=== PATIENT | female | born 2005 | race Caucasian/White ===

== ENCOUNTER 2025-08-06 07:44 | Outpatient (OUT) | payer BC, SELFPAY ==
--- OUTSIDE RECORDS SUMMARY | 2025-07-27 14:30 | XMS_ITS | Encounter Summary ---
Author Organization [facility] Address [address] [place] [address] Care Team Providers Care Pressing Machine Tender Name Role Phone Unavailable Primary Care Provider Unavailabl e Encounter Details DateTypeDepartmentCare Team (Latest Contact Info)Fbbwecnukoz39/11/2025 2:30 PM ESTOffice Visit [facility] Medicine 112 [facility] [address] [place] [address] Byron Solano MD 112 [facility] 100 [place] [address] Tachycardia (Primary Dx); Family history of high cholesterol; Screening for diabetes mellitus; Screening cholesterol level; Multinodular goiter Social History Tobacco UseTypesPacks/DayYears UsedDateSmoking Tobacco: NeverSmokeless Tobacco: Never Tobacco Cessation:Counseling Given: Yes Alcohol UseStandard Drinks/WeekCommentsNever0 (1 standard drink = 0.6 oz pure alcohol)PHQ-2AnswerDate RecordedPatient Health Questionnaire-2 Kfvhf24109/26/2024 CommentsNoSex and Gender InformationValueDate RecordedSex Assigned at BirthNot on fileLegal WeyTndost81/15/2023 8:08 PM EDTGender IdentityNot on file Sexual OrientationNot on filedocumented as of this encounter Last Filed Vital Signs Vital SignReadingTime TakenCommentsBlood Pressure--Crizv307507/27/2025 2:28 PM EST Temperature--Respiratory Rate--Oxygen Hmcimkhqam40%07/27/2025 2:28 PM ESTInhaled Oxygen Concentration--Gmhlyj90.2 kg (126 lb)07/27/2025 2:28 PM LHADxugog340.5 cm (5' 2 )07/27/2025 2:28 PM ESTBody Mass Index23.0507/27/2025 2:28 PM EST documented in this encounter Functional Status * Over the past 2 weeks, how often have you been bothered by any of the following problems?QuestionAnswerDate of AssessmentAuthorLittle interest or pleasure in doing thingsNot at all07/27/2025 2:30 PM Oj, December, [place] Feeling down, depressed, or hopelessNot at all07/27/2025 2:30 PM Oj, December, [facility] FARMatient Health Questionnaire-2 Yjcyp83109/26/2024 2:30 PM Oj December, [place] documented as of this encounter Progress Notes * Byron Solano MD - 07/27/2025 2:30 PM EST Images from the original note were not included. Patient ID: Silvia Dalton is a 19 y.o. female who presents for: Sleep Disorder: Onset of symptoms has been several years. How many hours of sleep is patient getting on average night: 8-9 How long does it take patient to get to sleep each night: 5-10 min Does he/she have trouble falling asleep: no Does he/she have trouble maintaining sleep: no Does patient have good sleep hygiene: yes Pt states she has been getting a high HR in the 120s at home which she brought readings with her. She denies anxiousness. Review of Systems Constitutional: Negative for appetite change and fatigue. Psychiatric/Behavioral: Negative for agitation, behavioral problems, sleep disturbance and suicidalideas. The patient is not nervous/anxious. Objective The patient is pleasant and in no acute distress. The neck is supple and trachea is midline. No masses are appreciated. The heart is regular rate and rhythm without S3, S4. No murmur. Heart rate measured by pulse oximetry is 108. The patient has normal respiratory pattern. The breath sounds are symmetrical without evidence of rhonchi or rales. No wheezing. The skin is warm and dry. The lower extremities have no edema. The patient has good eye contact and speech is clear. Appropriate affect. 04/12/2025 9:33 AM 01/12/2025 3:50 PM 09/30/2017 12:00 PM 08/01/2017 12:00 PM Vitals BMI 23.23 kg/m2 23.96 kg/m2 16.45 kg/m2 16.66 kg/m2 BSA (m2) 1.59 m2 1.61 m2 1.18 m2 1.18 m2 Systolic 100 100 Diastolic 60 64 Height (in) 5' 2 5' 2 4' 9 4' 9 Weight (lb) 127 131 76 77 Visit Report Report Report No Known Allergies Current Outpatient Medications on File Prior to Visit Medication Sig Dispense Refill medroxyPROGESTERone (Depo-Provera) 150 MG/ML injection Inject 150 mg into the shoulder, thigh, or buttocks every 3 (three) months QUEtiapine (SEROquel) 25 MG tablet Take 1 tablet (25 mg) by mouth at bedtime 90 tablet 1 No current facility-administered medications on file prior to visit. 1. Tachycardia (Primary) Acute problem. At this point we have no specific reason for the tachycardia. She has previously used an excessive amount caffeine but currently is not using more than 1 dose in the morning. No other stimulants. No decongestants. We will start with pursuing basic labs. We do not find something that is helping us with the diagnosis, the next step will be to proceed with Holter monitor. - CBC and differential; Future - Comprehensive metabolic panel; Future - TSH; Future - CBC and differential - Comprehensive metabolic panel - TSH 2. Family history of high cholesterol - Lipid panel; Future - Lipid panel 3. Screening for diabetes mellitus - Comprehensive metabolic panel; Future - Comprehensive metabolic panel 4. Screening cholesterol level - Lipid panel; Future - Lipid panel 5. Multinodular goiter Upon review of the medical record we find that she has a history of this. We will start with a TSH. - TSH; Future - TSH Please Note: Portions of this chart may have been created using voice recognition software. Occasionally a wrong-word or sound-like substitutions may have occurred due to inherent limitations of the voice recognition software. Please read the chart carefully and recognize, using context, where the substitutions may have occurred. documented in this encounter Plan of Treatment NameTypePriorityAssociated DiagnosesOrder ScheduleCBC and differentialLabRoutine Tachycardia Expected: 07/27/2025 (Approximate), Expires: 07/27/2026omprehensive metabolic panelLabRoutine Tachycardia Screening for diabetes mellitus Expected: 07/27/2025 (Approximate), Expires: 07/27/2026Lipid panelLabRoutine Family history of high cholesterol Screening cholesterol level Expected: 07/27/2025 (Approximate), Expires: 07/27/2026TSHLabRoutine Tachycardia Multinodular goiter Expected: 07/27/2025 (Approximate), Expires: 07/27/2026documented as of this encounter Visit Diagnoses Diagnosis Tachycardia- Primary Unspecified tachycardia Family history of high cholesterol Family history of other endocrine and metabolic diseases Screening for diabetes mellitus Screening cholesterol level Screening for lipoid disorders Multinodular goiter Nontoxic multinodular goiter documented in this encounter
--- OUTSIDE RECORDS SUMMARY | 2025-07-28 08:51 | XMS_ITS | Encounter Summary ---
Author Organization [facility] Address [address] [facility], [address] [place] [address] Care Team Providers Care Electronic Parts Salesperson Name Role Phone Byron Solano MD Primary Care Provider [phone] Encounter Details DateTypeDepartmentCare Team (Latest Contact Info)Rnmswrjgnct03/12/2025 8:51 AM EST - 07/28/2025 11:59 PM ESTHospital Encounter [place] [id number] Discharge Disposition: Home or Self Care Social History Tobacco UseTypesPacks/DayYears UsedDateSmoking Tobacco: NeverSmokeless Tobacco: NeverAlcohol UseStandard Drinks/WeekCommentsNot Currently0 (1 standard drink = 0.6 oz pure alcohol)[facility] UtilitiesAnswerDate RecordedIn the past 12 months has the Mobile [employer], gas, oil, or water [employer] threatened to shut off services in your home?No01/28/2025UDIT-CAnswerDate RecordedQ1: How often do you have a drink containing alcohol?Never04/01/2025Q2: How many drinks containing alcohol do you have on a typical day when you are drinking?Patient does not drink04/01/2025Q3: How often do you have six or more drinks on one occasion?Never04/01/2025PHQ-2 AnswerDate RecordedPHQ-9 Total Ccljv294Hunger Vital SignAnswerDate RecordedWithin the past 12 months, you worried that your food would run out before you got the money to buymore.Never true01/28/2025Within the past 12 months, the food you bought just didn't last and you didn't have money to get more.Never true01/28/2025PRAPARE - TransportationAnswerDate RecordedIn the past 12 months, has lack of transportation kept you from medical appointments or from getting medications?No01/28/2025In the past 12 months, has lack of transportation kept you from meetings, work, or from getting things needed for daily living?No01/28/2025Housing Stability Vital SignAnswerDate RecordedIn the last 12 months, was there a time when you were not able to pay the mortgage or rent on time?No01/28/2025In the past 12 months, how many times have you moved where you were living?t any time in the past 12 months, were you homeless or living in a mcc (including now)?No01/28/2025Food Insecurity AnswerDate RecordedWithin the past 12 months, you worried that your food would run out before you got the money to buymore.Within the past 12 months, the food you bought just didn't last and you didn't have money to get more.Interpersonal Safety Domain Source: IP Abuse ScreeningAnswerDate RecordedPhysical yvwauEoqwld50/14/2024Verbal rvfoyJlhsky38/14/2024Emotional iyoxjSbiqmo01/14/2024Financial kyxijKmvzoc82/14/2024Sexual qlghhHlhbqn73/14/2024 CommentsNoSex and Gender InformationValueDate RecordedSex Assigned at BirthNot on fileLegal OceLqubtp22/25/2013 10:23 PM EDTGender IdentityNot on file Sexual OrientationNot on filedocumented as of this encounter Medications at Time of Discharge MedicationSigDispense QuantityRefillsLast FilledStart DateEnd Date medroxyPROGESTERone (DEPO-PROVERA) 150 MG/ML injection Inject 1 mL into the muscle SEROQUEL 25 MG tablet fexofenadine (ZINA) 180 MG tablet TAKE 1 TABLET BY MOUTH EVERY MORNING X 1 WEEK THEN IQSMFU284documented as of this encounter Plan of Treatment Not on file documented as of this encounter Procedures Procedure NamePriorityDate/TimeAssociated DiagnosisCommentsCBC WITH AUTO ASIBBCDUONMXFyvdnry79/12/2025 8:53 AM EST RAGHruurvs29/12/2025 8:53 AM EST LIPID DHKXNYdraizg37/12/2025 8:53 AM EST COMPREHENSIVE METABOLIC MIMDMXlpfckg39/12/2025 8:53 AM EST documented in this encounter Results * TSH (07/28/2025 8:53 AM EST)ComponentValueRef RangeTest MethodAnalysis Time Performed AtPathologist SignatureTSH1.050.27 - 4.20 uIU/mL07/28/2025 8:53 AM [facility] LABSpecimen (Source)Anatomical Location / LateralityCollection Method / VolumeCollection TimeReceived Time07/28/2025 8:53 AM EST07/28/2025 8:54 AM EST Narrative Authorizing ProviderResult TypeResult Benjamín Solano MDCHEMISTRY ORDERABLESFinal ResultPerforming OrganizationAddressCity/State/ZIP CodePhone Number [facility] [address] [place] [address], [facility] [phone] * Lipid Panel (07/28/2025 8:53 AM EST)ComponentValueRef RangeTest MethodAnalysis TimePerformed AtPathologist SignatureCholesterol, Tcxyo2686 - 199 mg/dL 07/28/2025 8:53 AM ESTMERCY LABORATORIESComment: Cholesterol Guidelines: <200 Desirable 200-240 ??Borderline >240 Undesirable HDL50>40 mg/dL07/28/2025 8:53 AM ESTMERCY LABORATORIESComment: HDL Guidelines: <40 Undesirable 40-59 ?Borderline >59 Desirable LDL Oznwkmhrhio213 - 100 mg/dL07/28/2025 8:53 AM ESTMERCY LABORATORIESComment: LDL Guidelines: <100 Desirable 100-129 ?? Near to/above Desirable 130-159 ?? Borderline >159 Undesirable Direct (measured) LDL and calculated LDL are not interchangeable tests. Chol/HDL Ratio3.1<5.011/08/2025 8:53 AM ESTSUMMIT HEALTHCARE REGIONAL MEDICAL CENTERGnarus Systems YUZFIIYSHQWKOfafywvshsajx14<150 mg/dL07/28/2025 8:53 AM ESTSUMMIT HEALTHCARE REGIONAL MEDICAL CENTERGnarus Systems LABORATORIESComment: Triglyceride Guidelines: <150 Desirable 150-199 ??Borderline 200-499 ??High >499 Very high Based on AHA Guidelines for fasting triglyceride, June 2012. ZMLY750 - 30 mg/dL07/28/2025 8:53 AM ESTDhf Taxi LABORATORIESSpecimen (Source) Anatomical Location / LateralityCollection Method / VolumeCollection Time Received Time07/28/2025 8:53 AM EST07/28/2025 8:54 AM EST Narrative Authorizing ProviderResult TypeResult StatusEdapril Solano MDCHEMISTRY ORDERABLESFinal ResultPerforming OrganizationAddressCity/State/ZIP CodePhone Number [facility] [address] [place], [place] [address] [phone] [place] [id number] [address] [phone] * Comprehensive Metabolic Panel (07/28/2025 8:53 AM EST)ComponentValueRef Range Test MethodAnalysis TimePerformed AtPathologist HobheqsrcXectyo088480 - 145 mmol/L109/27/2024 8:53 AM [facility] LABPotassium4.03.7 - 5.3 mmol/L109/27/2024 8:53 AM [facility] OAMWdtnvnwo58342 - 107 mmol/L109/27/2024 8:53 AM [facility] GVKNZ14436 - 31 mmol/L109/27/2024 8:53 AM [facility] LABAnion Gap99 - 16 mmol/L109/27/2024 8:53 AM [facility] YVJAcoavju3313 - 99 mg/dL07/28/2025 8:53 AM [facility] OMFAHR60 - 20 mg/dL 07/28/2025 8:53 AM [facility] LABCreatinine0.80.50 - 0.90 mg/dL07/28/2025 8:53 AM [facility] LABEstDave Filt Rate >90>60 mL/min/1.60j59007/28/2025 8:53 AM [facility] Comment: ? These results are not intended for use in patients <18 years of age. ? eGFR results are calculated without a race factor using the 2020 CKD-EPI equation. Careful clinical correlation is recommended, particularly when comparing to results calculated using previous equations. The CKD-EPI equation is less accurate in patients with extremes of muscle mass, extra-renal metabolism of creatine, excessive creatine ingestion, or following therapy that affects renal tubular secretion. BUN/Creatinine Fpipj807 - 8:53 AM [facility] LABCalcium9.28.6 - 10.4 mg/dL07/28/2025 8:53 AM [facility] LABTotal Protein6.86.6 - 8.7 g/dL07/28/2025 8:53 AM [facility] LABAlbumin4.53.5 - 5.2 g/dL07/28/2025 8:53 AM [facility] LABAlbumin/Globulin Ratio1.91.0 - 2.511 8:53 AM [facility] LABTotal Bilirubin0.60.00 - 1.20 mg/dL07/28/2025 8:53 AM [facility] LABAlkaline Aqnfenihdsb1879 - 104 U/L109/27/2024 8:53 AM [facility] TDBNOH4113 - 35 U/L109/27/2024 8:53 AM [facility] KSIQZB1370 - 35 U/L109/27/2024 8:53 AM [facility] LABSpecimen (Source)Anatomical Location / Laterality Collection Method / VolumeCollection TimeReceived Time07/28/2025 8:53 AM EST 07/28/2025 8:54 AM EST Narrative Authorizing ProviderResult TypeResult StatusByron Solano MDCHEMISTRY ORDERABLESFinal ResultPerforming OrganizationAddressCity/State/ZIP CodePhone Number [facility] [address] [phone] * (ABNORMAL) CBC with Auto Differential (07/28/2025 8:53 AM EST)ComponentValue Ref RangeTest MethodAnalysis TimePerformed AtPathologist SignatureWBC4.74.5 - 13.5 k/uL07/28/2025 8:53 AM [facility] LABRBC5.093.95 - 5.11 m/uL07/28/2025 8:53 AM [facility] WDBLotvzqzqtb47.2 11.9 - 15.1 g/dL07/28/2025 8:53 AM [facility] LAB Vwimtotdyt01.036.3 - 47.1 %07/28/2025 8:53 AM [facility] CRXDPH06.5(L)82.6 - 102.9 fL07/28/2025 8:53 AM [facility] SXYLHA78.925.2 - 33.5 pg07/28/2025 8:53 AM [facility] MCHC33.828.4 - 34.8 g/dL07/28/2025 8:53 AM [facility] RDW12.311.8 - 14.4 %07/28/2025 8:53 AM [facility] Tialhiayf124040 - 453 k/uL07/28/2025 8:53 AM [facility] DKSUVZ85.38.1 - 13.5 fL07/28/2025 8:53 AM [facility] NRBC Automated0.00.0 per 100 WBC07/28/2025 8:53 AM [facility] LABNeutrophils %4534 - 64 %07/28/2025 8:53 AM [facility] LABLymphocytes %46(H)25 - 45 %07/28/2025 8:53 AM [facility] LABMonocytes %62 - 8 %07/28/2025 8:53 AM [facility] LABEosinophils %21 - 4 %07/28/2025 8:53 AM [facility] LABBasophils %10 - 2 %07/28/2025 8:53 AM [facility] LABImmature Granulocytes %00 %07/28/2025 8:53 AM [facility] LABNeutrophils Absolute2.101.80 - 8.00 k/uL07/28/2025 8:53 AM [facility] LABLymphocytes Absolute2.111.20 - 5.20 k/uL07/28/2025 8:53 AM [facility] LABMonocytes Absolute 0.300.10 - 1.40 k/uL07/28/2025 8:53 AM [facility] Eosinophils Absolute0.110.00 - 0.44 k/uL07/28/2025 8:53 AM [facility] LABBasophils Absolute0.030.00 - 0.20 k/uL07/28/2025 8:53 AM [facility] LABImmature Granulocytes Absolute<0.030.00 - 0.30 k/uL07/28/2025 8:53 AM [facility] LABSpecimen (Source)Anatomical Location / LateralityCollection Method / VolumeCollection TimeReceived Time07/28/2025 8:53 AM EST07/28/2025 8:54 AM EST Narrative Authorizing ProviderResult TypeResult StatusEdapril Solano MDHEMATOLOGY ORDERABLESFinal ResultPerforming OrganizationAddressCity/State/ZIP CodePhone Number [facility] [address] [place] [id number] [phone] documented in this encounter Visit Diagnoses Not on filedocumented in this encounter Care Teams Team MemberRelationshipSpecialtyStart DateEnd Date Byron Solano MD [address] [place] [address] PCP - Yhfdjcl84/12/25documented as of this encounter
--- OUTSIDE RECORDS SUMMARY | 2025-08-06 07:45 | XMS_ITS | Encounter Summary ---
Author Organization [facility] Address [address] [place] [address] Care Team Providers Care Candy Maker Helper Name Role Phone Unavailable Primary Care Provider Unavailabl e Encounter Details DateTypeDepartmentCare Team (Latest Contact Info)Toketdtfsja36/11/2025amb flowsheet [facility] [address] Medicine [address] [place] [address] Byron Solano MD [address] [place] [address] Social History Tobacco UseTypesPacks/DayYears UsedDateSmoking Tobacco: NeverSmokeless Tobacco: NeverAlcohol UseStandard Drinks/WeekCommentsNever0 (1 standard drink = 0.6 oz pure alcohol)PHQ-2AnswerDate RecordedPatient Health Questionnaire-2 Score0 07/27/2025CommentsNoSex and Gender InformationValueDate RecordedSex Assigned at BirthNot on fileLegal ShoPqetzu44/15/2023 8:08 PM EDTGender Identity Not on fileSexual OrientationNot on filedocumented as of this encounter Plan of Treatment Not on file documented as of this encounter Visit Diagnoses Not on filedocumented in this encounter
--- OUTSIDE RECORDS SUMMARY | 2025-08-06 07:45 | XMS_ITS | Clinical Summary ---
Author Organization [facility] Address [id number] [address] [place] [address] Care Team Providers Care Wwe Wrestler Name Role Phone Unavailable Primary Care Provider Unavailabl e Allergies No known active allergies Medications No known medications Family History Medical HistoryRelationNameCommentsAnesthesia problemsBrotherPONVAnesthesia problemsMotherprolonged emergenceRelationNameStatusCommentsBrotherMother Social History Tobacco UseTypesPacks/DayYears UsedDateSmoking Tobacco: NeverSmokeless Tobacco: Never Tobacco Cessation:Counseling Given: Not Answered Alcohol UseStandard Drinks/WeekCommentsDefer0 (1 standard drink = 0.6 oz pure alcohol)CommentsNoSex and Gender InformationValueDate RecordedSex Assigned at BirthNot on fileLegal GskXcybvp49/02/2024 9:50 AM ESTGender Identity Not on fileSexual OrientationNot on file Last Filed Vital Signs Vital SignReadingTime TakenCommentsBlood Pressure--Pulse--Temperature-- Respiratory Rate--Oxygen Saturation--Inhaled Oxygen Concentration--Hjjbmy86.4 kg (120 lb)08/19/2024 10:42 AM JVTHgjdil668 cm (5' 3 )08/19/2024 10:42 AM ESTBody Mass Index21.26110/20/2023 10:42 AM ESTBody Mass Index Mfubaprhse03.98%08/19/2024 10:42 AM ESTGrowth Chart: CDC (Girls, 2-20 Years) Plan of Treatment Not on file Medical Devices Not on file Insurance
--- OUTSIDE RECORDS SUMMARY | 2025-08-06 07:45 | XMS_ITS | Encounter Summary ---
Author Organization [facility] Address [address] [place] [address] Care Team Providers Care Automobile Parts Assembler Name Role Phone Unavailable Primary Care Provider Unavailabl e Encounter Details DateTypeDepartmentCare Team (Latest Contact Info)Emguevqdmle74/12/2025linisync Result Encounter [facility] External Department Unsolicited Byron Galdamez MD [address] [facility] [address] [place], [place] [id number] Social History Tobacco UseTypesPacks/DayYears UsedDateSmoking Tobacco: NeverSmokeless Tobacco: NeverAlcohol UseStandard Drinks/WeekCommentsNever0 (1 standard drink = 0.6 oz pure alcohol)PHQ-2AnswerDate RecordedPatient Health Questionnaire-2 Score0 07/27/2025CommentsNoSex and Gender InformationValueDate RecordedSex Assigned at BirthNot on fileLegal OivWwpbyf77/15/2023 8:08 PM EDTGender Identity Not on fileSexual OrientationNot on filedocumented as of this encounter Plan of Treatment Not on file documented as of this encounter Procedures Procedure NamePriorityDate/TimeAssociated DiagnosisCommentsMHPT LIPID PROFILE Kteikor0907/28/2025 8:53 AM EST MHPT COMP METABOLIC QHZBRhcogrw75/12/2025 8:53 AM EST MHPT CBC WITH WVUUSsrqfym90/12/2025 8:53 AM EST ALL THYROID STIM OZXQWQLUtmduag16/08/2025 8:53 AM EST documented in this encounter Results * MHPT LIPID PROFILE (07/28/2025 8:53 AM EST)ComponentValueRef RangeTest Method Analysis TimePerformed AtPathologist SignatureMHPT UGAYFVLEKDN8438 - 199 mg/dL MHPTComment: Cholesterol Guidelines: <200 Desirable 200-240 ??Borderline >240 Undesirable MHPT CHOLESTEROL,HDL50>40 mg/dLMHPTComment: HDL Guidelines: <40 Undesirable 40-59 ?Borderline >59 Desirable MHPT CHOLESTEROL,XLJ882 - 100 mg/dLMHPTComment: LDL Guidelines: <100 Desirable 100-129 ?? Near to/above Desirable 130-159 ?? Borderline >159 Undesirable Direct (measured) LDL and calculated LDL are not interchangeable tests. MHPT CHOL/HDL RATIO3.1<5.0MHPTMHPT KPPWANBZCZVVV99<150 mg/dLMHPTComment: Triglyceride Guidelines: <150 Desirable 150-199 ??Borderline 200-499 ??High >499 Very high Based on AHA Guidelines for fasting triglyceride, June 2012. MHPT CHOLESTEROL,NJKX760 - 30 mg/dLMHPTSpecimen (Source)Anatomical Location / LateralityCollection Method / VolumeCollection TimeReceived Time07/28/2025 8:53 AM EST07/28/2025 8:54 AM EST Narrative CLINISYNC - 07/28/2025 4:18 PM EST Original Ordering Provider: BYRON GALDAMEZ Authorizing ProviderResult TypeResult Benjamín Galdamez MDCLINISYNCFinal ResultPerforming OrganizationAddressCity/State/ZIP CodePhone Number [facility] * ALL THYROID STIM HORMONE (07/28/2025 8:53 AM EST)ComponentValueRef RangeTest MethodAnalysis TimePerformed AtPathologist SignatureMHPT THYROID STIM. HORM. 1.050.27 - 4.20 uIU/mLMHPTSpecimen (Source)Anatomical Location / Laterality Collection Method / VolumeCollection TimeReceived Time07/28/2025 8:53 AM EST 07/28/2025 8:54 AM EST Narrative CLINISYNC - 07/28/2025 10:10 AM EST Original Ordering Provider: BYRON GALDAMEZ Authorizing ProviderResult TypeResult Benjamín Galdamez MDCLINISYNCFinal ResultPerforming OrganizationAddressCity/State/ZIP CodePhone Number [facility]NC MHPT * MHPT COMP METABOLIC PROF (07/28/2025 8:53 AM EST)ComponentValueRef RangeTest MethodAnalysis TimePerformed AtPathologist SignatureMHPT NA (SODIUM)723573 - 145 mmol/LMHPTMHPT K (POTASSIUM)4.03.7 - 5.3 mmol/LMHPTMHPT GRCESIAC33836 - 107 mmol/LMHPTMHPT WA28023 - 31 mmol/LMHPTMHPT ANION GAP99 - 16 mmol/LMHPTMHPT OPRWADX2498 - 99 mg/dLMHPTMHPT BUN (UREA N)96 - 20 mg/dLMHPTMHPT CREATININE0.8 0.50 - 0.90 mg/dLMHPTMHPT EGFR>90>60 mL/min/1.71x6GTLZZzfmgru: ? These results are not intended for [...] following therapy that affects renal tubular secretion. MHPT BUN/CRE LSSBN560 - 20MHPTMHPT CALCIUM9.28.6 - 10.4 mg/dLMHPTMHPT PROTEIN, TOTAL6.86.6 - 8.7 g/dLMHPTMHPT ALBUMIN4.53.5 - 5.2 g/dLMHPTMHPT ALBUMIN/GLOB RATIO1.91.0 - 2.5MHPTMHPT BILIRUBIN, TOTAL0.60.00 - 1.20 mg/dLMHPTMHPT ALKALINE IKPV1493 - 104 U/LMHPTMHPT WLZ4860 - 35 U/LMHPTMHPT JGR0172 - 35 U/LMHPTSpecimen (Source)Anatomical Location / LateralityCollection Method / VolumeCollection TimeReceived Time07/28/2025 8:53 AM EST07/28/2025 8:54 AM EST Narrative CLINISYNC - 07/28/2025 10:10 AM EST Original Ordering Provider: EDWARD J MD HEMEYER Authorizing ProviderResult TypeResult StatusEdapril Galdamez MDCLINISYNCFinal ResultPerforming OrganizationAddressCity/State/ZIP CodePhone Number [facility] MHPT * (ABNORMAL) MHPT CBC WITH DIFF (07/28/2025 8:53 AM EST)ComponentValueRef Range Test MethodAnalysis TimePerformed AtPathologist SignatureMHPT WBC COUNT4.74.5 - 13.5 k/uLMHPTMHPT RBC COUNT5.093.95 - 5.11 m/uLMHPTMHPT KKWHLUMEYG24.211.9 - 15.1 g/dLMHPTMHPT LMKQCNVWVS14.036.3 - 47.1 %MHPTMHPT MCV82.5(L)82.6 - 102.9 fLMHPTMHPT MCH27.925.2 - 33.5 pgMHPTMHPT MCHC33.828.4 - 34.8 g/dLMHPTMHPT RDW 12.311.8 - 14.4 %MHPTMHPT PLATELET NLKWC258115 - 453 k/uLMHPTMHPT MPV10.38.1 - 13.5 fLMHPTMHPT NRBC AUTOMATED0.00.0 per 100 WBCMHPTMHPT NEUTROPHIL (SEG)4534 - 64 %MHPTMHPT VQZEVGGALF83(H)25 - 45 %MHPTMHPT PGZVULGJ99 - 8 %MHPTMHPT OYQWZWUXXD05 - 4 %MHPTMHPT EAKKYKBO69 - 2 %MHPTMHPT IMMATURE VGCMTZQAJAW89 % MHPTMHPT ABS.NEUTROPHIL (SEG)2.101.80 - 8.00 k/uLMHPTMHPT ABS. LYMPH2.111.20 - 5.20 k/uLMHPTMHPT ABS. MONOCYTE0.300.10 - 1.40 k/uLMHPTMHPT ABS. EOSINOPHIL 0.110.00 - 0.44 k/uLMHPTMHPT ABS. BASOPHIL0.030.00 - 0.20 k/uLMHPTMHPT ABS.IMM.GRANULOCYTE<0.030.00 - 0.30 k/uLMHPTSpecimen (Source)Anatomical Location / LateralityCollection Method / VolumeCollection TimeReceived Time 07/28/2025 8:53 AM EST07/28/2025 8:54 AM EST Narrative CLINISYNC - 07/28/2025 9:32 AM EST Original Ordering Provider: BYRON GALDAMEZ Authorizing ProviderResult TypeResult StatusEdapril Galdamez MDCLINISYNCFinal ResultPerforming OrganizationAddressCity/State/ZIP CodePhone Number [facility] MHPT documented in this encounter Visit Diagnoses Not on filedocumented in this encounter
--- OUTSIDE RECORDS SUMMARY | 2025-08-06 07:45 | XMS_ITS | Encounter Summary ---
Author Organization [facility] Address [address] [place] [address] Care Team Providers Care Pathology Teacher Name Role Phone Unavailable Primary Care Provider Unavailabl e Reason for Referral * Cardiac Stress Testing (Routine) - Sent for SchedulingSpecialtyDiagnoses / ProceduresReferred By ContactReferred To ContactRadiology Diagnoses Tachycardia Heart palpitations Procedures Holter monitor Byron Solano MD [address] [address] Phone: tel: fax: [address] [address] Phone: tel: fax: Referral IDStatusReasonStart DateExpiration DateVisits RequestedVisits [id number] for Djpmkhsnok13/12/20255/ Reason for Visit * ReasonOnset DateCommentsCare Qfgvktrgqmmf99/12/2025 Encounter Details DateTypeDepartmentCare Team (Latest Contact Info)Ztetfvomtvx47/12/2025Results Follow-Up [facility] [place] [address] [facility] [address] [address] Byron Solano MD [address] [address] (Fax) MHPT CBC WITH DIFF, MHPT COMP METABOLIC PROF, ALL THYROID STIM HORMONE Social History Tobacco UseTypesPacks/DayYears UsedDateSmoking Tobacco: NeverSmokeless Tobacco: NeverAlcohol UseStandard Drinks/WeekCommentsNever0 (1 standard drink = 0.6 oz pure alcohol)PHQ-2AnswerDate RecordedPatient Health Questionnaire-2 Score0 07/27/2025CommentsNoSex and Gender InformationValueDate RecordedSex Assigned at BirthNot on fileLegal NbhUaemig09/15/2023 8:08 PM EDTGender Identity Not on fileSexual OrientationNot on filedocumented as of this encounter Miscellaneous Notes * Telephone Encounter - Lata Dodge MA - 07/28/2025 1:35 PM EST Pt is in classes in afternoons. Portal message sent. Monitor sent to [facility] * Telephone Encounter - Lata Dodge MA - 07/28/2025 1:35 PM EST ----- Message from Byron Solano MD sent at 07/28/2025 1:05 PM EST ----- ----- Message ----- From: Interface, Lab Results In Sent: 07/28/2025 9:46 AM EST To: Byron Solano MD * Telephone Encounter - Byron Solano MD - 07/28/2025 1:04 PM EST Notify patient that labs are rewed. They are essentially normal. There is a suggestion of viral infection but not definitive in the blood count. She is not anemic her sugar is not elevated her liver and kidney appear to be normal. As we have discussed she should proceed with 3 day Holter monitor for tachycardia And palpitations. documented in this encounter Plan of Treatment NameTypePriorityAssociated DiagnosesOrder ScheduleHolter monitorImagingRoutine Tachycardia Heart palpitations Expected: 07/28/2025 (Approximate), Expires: 07/28/2026documented as of this encounter Visit Diagnoses Diagnosis Tachycardia Unspecified tachycardia Heart palpitations Palpitations documented in this encounter
--- OUTSIDE RECORDS SUMMARY | 2025-08-06 07:45 | XMS_ITS | Encounter Summary ---
Author Organization [facility] Address [address] [place] [address] Care Team Providers Care Barrel Washer Machine Name Role Phone Unavailable Primary Care Provider Unavailabl e Encounter Details DateTypeDepartmentCare Team (Latest Contact Info)Fulmobemedd31/11/2025Travel Social History Tobacco UseTypesPacks/DayYears UsedDateSmoking Tobacco: NeverSmokeless Tobacco: NeverAlcohol UseStandard Drinks/WeekCommentsNever0 (1 standard drink = 0.6 oz pure alcohol)PHQ-2AnswerDate RecordedPatient Health Questionnaire-2 Score0 07/27/2025CommentsNoSex and Gender InformationValueDate RecordedSex Assigned at BirthNot on fileLegal CreFthdco94/15/2023 8:08 PM EDTGender Identity Not on fileSexual OrientationNot on filedocumented as of this encounter Functional Status * Over the past 2 weeks, how often have you been bothered by any of the following problems?QuestionAnswerDate of AssessmentAuthorLittle interest or pleasure in doing thingsNot at all07/27/2025 2:30 PM Oj Lata, CRISTIANO Feeling down, depressed, or hopelessNot at all07/27/2025 2:30 PM Oj December, MARYANNatient Health Questionnaire-2 Sjawm64909/26/2024 2:30 PM Oj LataCRISTIANO documented as of this encounter Plan of Treatment Not on file documented as of this encounter Visit Diagnoses Not on filedocumented in this encounter
--- OUTSIDE RECORDS SUMMARY | 2025-08-06 07:45 | XMS_ITS | Clinical Summary ---
Author Organization [facility] Address [address], [address] [place] [address] Care Team Providers Care Disintegrator Feeder Name Role Phone Byron Solano MD Primary Care Provider [phone] Allergies No known active allergies Medications MedicationSigDispense QuantityRefillsLast FilledStart DateEnd DateStatus fexofenadine (ZINA) 180 MG tablet TAKE 1 TABLET BY MOUTH EVERY MORNING X 1 WEEK THEN KMCJBU2911/07/2023ctive SEROQUEL 25 MG tablet Active medroxyPROGESTERone (DEPO-PROVERA) 150 MG/ML injection Inject 1 mL into the muscleActive Active Problems No known active problems Encounters DateTypeDepartmentCare FshoAbutooemjgj53/12/2025 8:51 AM EST - 07/28/2025 11:59 PM ESTHospital Encounter [facility] [address] [place], [place] [id number] Discharge Disposition: Home or Self Carefrom Last 3 Months Immunizations ImmunizationAdministration DatesNext DueMeningococcal ACWY, MENQUADFI (MenACWY- TT), (age 2y+), IM, 0.5mL02/25/2023 Social History Tobacco UseTypesPacks/DayYears UsedDateSmoking Tobacco: NeverSmokeless Tobacco: Never Tobacco Cessation:Counseling Given: Yes Alcohol UseStandard Drinks/WeekCommentsNot Currently0 (1 standard drink = 0.6 oz pure alcohol)[facility] UtilitiesAnswerDate RecordedIn the past 12 months has the electric, gas, oil, or water company threatened to shut off services in your home?No01/28/2025UDIT-CAnswerDate RecordedQ1: How often do you have a drink containing alcohol?Never04/01/2025Q2: How many drinks containing alcohol do you have on a typical day when you are drinking?Patient does not drink04/01/2025Q3: How often do you have six or more drinks on one occasion?Never04/01/2025PHQ-2 AnswerDate RecordedPHQ-9 Total Etwnc896Hunger Vital SignAnswerDate RecordedWithin the past 12 months, [...] were you homeless or living in a longterm (including now)?No01/28/2025Food Insecurity AnswerDate RecordedWithin the past 12 months, you worried that your food would run out before you got the money to buymore.Within the past 12 months, the food you bought just didn't last and you didn't have money to get more.Interpersonal Safety Domain Source: IP Abuse ScreeningAnswerDate RecordedPhysical nymujLjvpag80/14/2024Verbal qpdrmKzmgus98/14/2024Emotional jonzyMbvmjb74/14/2024Financial zyckaGoowib74/14/2024Sexual ptgnrKgisrs13/14/2024 CommentsNoSex and Gender InformationValueDate RecordedSex Assigned at BirthNot on fileLegal LtlTltaeg27/25/2013 10:23 PM EDTGender IdentityNot on file Sexual OrientationNot on file Last Filed Vital Signs Vital SignReadingTime TakenCommentsBlood Rpurtriq938/6707 1:45 AM EDT Yvjbw184404/02/2025 1:45 AM AUAWiwywrivail77.6 ??C (97.9 ??F)04/02/2025 1:45 AM EDTRespiratory Zsze926104/02/2025 1:45 AM EDTOxygen Bervwhjiet99%04/02/2025 1:45 AM EDTInhaled Oxygen Concentration--Lkybkj13.8 kg (112 lb)04/22/2025 10:33 AM OVZZhufwp669.5 cm (5' 2 )04/22/2025 10:33 AM EDTBody Mass Index20.4908 10:33 AM EDT Plan of Treatment Health MaintenanceDue DateLast DoneCommentsVaricella vaccine (1 of 2 - 13+ 2- dose series)2018HIV yjlnra7110/26/2020HPV vaccine (1 - 3-dose series) 2020hlamydia/GC euogws9110/26/2021Meningococcal B vaccine (1 of 2 - Standard)2021Hepatitis C nvvgok224DTaP/Tdap/Td vaccine (1 - Tdap) 2024Hepatitis B vaccine (1 of 3 - 19+ 3-dose series)2024Flu vaccine (#1)5COVID-19 Vaccine (1 - 2023- season)2025Depression Screen 605/, 01/28/2025Meningococcal (ACWY) erbqqvgSxuiwijdg40/12/2023 Hepatitis A vaccineAged OutNo longer eligible based on patient's age to complete this topicHib vaccineAged OutNo longer eligible based on patient's age to complete this topicPneumococcal 0-49 years VaccineAged OutNo longer eligible based on patient's age to complete this topicPolio vaccineAged OutNo longer eligible based on patient's age to complete this topic Procedures Procedure NamePriorityDate/TimeAssociated RghzbiwimKcykfzhaCQOJgpfwxm90/12/2025 8:53 AM EST LIPID XVEWTCzluqkk73/12/2025 8:53 AM EST COMPREHENSIVE METABOLIC JYXRXKmnjlcg44/12/2025 8:53 AM EST CBC WITH AUTO RROMKKSWVFSVOwqcnse90/12/2025 8:53 AM EST from Last 3 Months Results * (ABNORMAL) CBC with Auto Differential (07/28/2025 8:53 AM EST)ComponentValue Ref RangeTest MethodAnalysis TimePerformed AtPathologist SignatureWBC4.74.5 - 13.5 k/uL07/28/2025 8:53 AM [facility] LABRBC5.093.95 - 5.11 m/uL07/28/2025 8:53 AM [facility] PZDSnvqgiedsu42.2 11.9 - 15.1 g/dL07/28/2025 8:53 AM [facility] Vcnohwstmw10.036.3 - 47.1 %07/28/2025 8:53 AM [facility] NCXOMM29.5(L)82.6 - 102.9 fL07/28/2025 8:53 AM [facility] ETPKNZ35.925.2 - 33.5 pg07/28/2025 8:53 AM [facility] MCHC33.828.4 - 34.8 g/dL07/28/2025 8:53 AM [facility] RDW12.311.8 - 14.4 %07/28/2025 8:53 AM [facility] Igidhlbjb846328 - 453 k/uL07/28/2025 8:53 AM [facility] QCEBIQ28.38.1 - 13.5 fL07/28/2025 8:53 AM [facility] NRBC Automated0.00.0 per 100 WBC07/28/2025 8:53 AM [facility] LABNeutrophils %4534 - 64 %07/28/2025 8:53 AM [facility] LABLymphocytes %46(H)25 - 45 %07/28/2025 8:53 AM [facility] LABMonocytes %62 - 8 %07/28/2025 8:53 AM [facility] LABEosinophils %21 - 4 %07/28/2025 8:53 AM [facility] LABBasophils %10 - 2 %07/28/2025 8:53 AM [facility] LABImmature Granulocytes %00 %07/28/2025 8:53 AM [facility] LABNeutrophils Absolute2.101.80 - 8.00 k/uL07/28/2025 8:53 AM [facility] LABLymphocytes Absolute2.111.20 - 5.20 k/uL07/28/2025 8:53 AM [facility] LABMonocytes Absolute 0.300.10 - 1.40 k/uL07/28/2025 8:53 AM [facility] Eosinophils Absolute0.110.00 - 0.44 k/uL07/28/2025 8:53 AM [facility] LABBasophils Absolute0.030.00 - 0.20 k/uL07/28/2025 8:53 AM [facility] LABImmature Granulocytes Absolute<0.030.00 - 0.30 k/uL07/28/2025 8:53 AM [facility] LABSpecimen (Source)Anatomical Location / LateralityCollection Method / VolumeCollection TimeReceived Time07/28/2025 8:53 AM EST07/28/2025 8:54 AM EST Narrative Authorizing ProviderResult TypeResult StatusByron Solano MDHEMATOLOGY ORDERABLESFinal ResultPerforming OrganizationAddressCity/State/ZIP CodePhone Number [facility] [address] [place] [address], [facility] [phone] * TSH (07/28/2025 8:53 AM EST)ComponentValueRef RangeTest MethodAnalysis Time Performed AtPathologist SignatureTSH1.050.27 - 4.20 uIU/mL07/28/2025 8:53 AM [facility] LABSpecimen (Source)Anatomical Location / LateralityCollection Method / VolumeCollection TimeReceived Time07/28/2025 8:53 AM EST07/28/2025 8:54 AM EST Narrative Authorizing ProviderResult TypeResult Benjamín Solano MDCHEMISTRY ORDERABLESFinal ResultPerforming OrganizationAddressCity/State/ZIP CodePhone Number [facility] [address] [phone] * Lipid Panel (07/28/2025 8:53 AM EST)ComponentValueRef RangeTest MethodAnalysis TimePerformed AtPathologist SignatureCholesterol, Yzurt7657 - 199 mg/dL 07/28/2025 8:53 AM ESTMERMophie LABORATORIESComment: Cholesterol Guidelines: <200 Desirable 200-240 ??Borderline >240 Undesirable HDL50>40 mg/dL07/28/2025 8:53 AM ESTMERCY LABORATORIESComment: HDL Guidelines: <40 Undesirable 40-59 ?Borderline >59 Desirable LDL Lnfikmejvbk446 - 100 mg/dL07/28/2025 8:53 AM ESTMERCY LABORATORIESComment: LDL Guidelines: <100 Desirable 100-129 ?? Near to/above Desirable 130-159 ?? Borderline >159 Undesirable Direct (measured) LDL and calculated LDL are not interchangeable tests. Chol/HDL Ratio3.1<5.011 8:53 AM ESTMERCY FTVVSYADMOQXZbkfjxakztuft45<150 mg/dL07/28/2025 8:53 AM ESTMERMophie LABORATORIESComment: Triglyceride Guidelines: <150 Desirable 150-199 ??Borderline 200-499 ??High >499 Very high Based on AHA Guidelines for fasting triglyceride, June 2012. KBDZ326 - 30 mg/dL07/28/2025 8:53 AM ESTMERCY LABORATORIESSpecimen (Source) Anatomical Location / LateralityCollection Method / VolumeCollection Time Received Time07/28/2025 8:53 AM EST07/28/2025 8:54 AM EST Narrative Authorizing ProviderResult TypeResult StatusEdapril Solano MDCHEMISTRY ORDERABLESFinal ResultPerforming OrganizationAddressCity/State/ZIP CodePhone Number [facility] [address] [place] [address], [facility] [phone] [facility] [address] [place] [address], [facility] [phone] * Comprehensive Metabolic Panel (07/28/2025 8:53 AM EST)ComponentValueRef Range Test MethodAnalysis TimePerformed AtPathologist ElfrnxfcgXcazpx086182 - 145 mmol/L109/27/2024 8:53 AM [facility] LABPotassium4.03.7 - 5.3 mmol/L109/27/2024 8:53 AM [facility] YKIVktbuagn56080 - 107 mmol/L109/27/2024 8:53 AM [facility] KYQMM78074 - 31 mmol/L109/27/2024 8:53 AM [facility] LABAnion Gap99 - 16 mmol/L109/27/2024 8:53 AM [facility] XBKOsvnzyu4538 - 99 mg/dL07/28/2025 8:53 AM [facility] SUAVVH43 - 20 mg/dL 07/28/2025 8:53 AM [facility] LABCreatinine0.80.50 - 0.90 mg/dL07/28/2025 8:53 AM [facility] LABEst, Glom Filt Rate >90>60 mL/min/1.80g10007/28/2025 8:53 AM [facility] Comment: ? These results are not [...] therapy that affects renal tubular secretion. BUN/Creatinine Kcqrc684 - 8:53 AM [facility] LABCalcium9.28.6 - 10.4 mg/dL07/28/2025 8:53 AM [facility] LABTotal Protein6.86.6 - 8.7 g/dL07/28/2025 8:53 AM [facility] LABAlbumin4.53.5 - 5.2 g/dL07/28/2025 8:53 AM [facility] LABAlbumin/Globulin Ratio1.91.0 - 2.511 8:53 AM [facility] LABTotal Bilirubin0.60.00 - 1.20 mg/dL07/28/2025 8:53 AM [facility] LABAlkaline Ywcwxcyehts1505 - 104 U/L109/27/2024 8:53 AM [facility] RMJUFY6389 - 35 U/L109/27/2024 8:53 AM [facility] SYYAYM0756 - 35 U/L109/27/2024 8:53 AM [facility] LABSpecimen (Source)Anatomical Location / Laterality Collection Method / VolumeCollection TimeReceived Time07/28/2025 8:53 AM EST 07/28/2025 8:54 AM EST Narrative Authorizing ProviderResult TypeResult StatusByron Solano MDCHEMISTRY ORDERABLESFinal ResultPerforming OrganizationAddressCity/State/ZIP CodePhone Number [facility] [address] [place] [id number] [phone] from Last 3 Months Insurance * Guarantor: Silvia Dalton TypeRelation to PatientDate of BirthPhone Billing AddressPersonal/ZyebgxFhpe90/10/[address] [address] Care Teams Team MemberRelationshipSpecialtyStart DateEnd Byron Solano MD [address] [address] PCP - Efamzaq16/12/25
--- OUTSIDE RECORDS SUMMARY | 2025-08-06 07:45 | XMS_ITS | Patient Health Record ---
Author Organization [facility] Address [address] [place] [address] Care Team Providers Care Business Development Professional Name Role Phone DELL SHARPE Primary Care Provider Edmundo Bach [phone] Allergies No Known Allergies Reason For Referral No Information Medications Medication SIG (Take, Route, Frequency, Duration) Notes Start Date End Date Status NAPROXEN ActiveFlexallActive Social History Tobacco Use: Social History Observation Description Date Details (start date - stop date) Never Smoker NA - NA Smoking History Question Answer Notes Smoking Status NonSmoker Problems Problem Type SNOMED Code ICD Code Onset Dates Problem Status W/U Status Risk Notes Problem Shoulder joint pain (880075930) Acute anna n of right shoulder (M25.511) ActiveconfirmedProblemPain of right scapula (M89.8X1)Activeconfirmed Plan Of Treatment No Information Insurance Providers Payer Name Payer Address Payer Phone Subscriber Number Group Number Insured Name Patient Relationship to Insured Coverage Start Date Coverage End Date [place] [address] [place] [address] [id number] Noah Dalton Child - Insured has Financial Responsibility Medical (General) History Surgical History Surgery Date(Month/Year)
--- OUTSIDE RECORDS SUMMARY | 2025-08-06 07:45 | XMS_ITS | Clinical Summary ---
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 Name Role Phone Unavailable Primary Care Provider Unavailabl e Allergies No known active allergies Medications MedicationSigDispense QuantityRefillsLast FilledStart DateEnd DateStatus QUEtiapine (SEROquel) 25 MG tablet Indications:Insomnia secondary to anxietyTake 1 tablet (25 mg) by mouth at bedtime 90 tablet 5Active medroxyPROGESTERone (Depo-Provera) 150 MG/ML injection Inject 150 mg into the shoulder, thigh, or buttocks every 3 (three) months 07/27/2025Discontinued(Med list cleanup) Active Problems ProblemNoted DateDiagnosed DateGeneralized anxiety soneeefe39/18/2025Insomnia secondary to ddqimfd7403/03/2025Multinodular dnylir8601/19/2025 Overview (01/19/2025): Thyroid US 12/2024 Gastroesophageal reflux disease without fvxhcmliqod85/22/2025 Encounters DateTypeDepartmentCare QeyqEsrijxuxddy51/12/2025Results Follow-Up [facility] [address] Byron Galdamez MD MHPT CBC WITH DIFF, MHPT COMP METABOLIC PROF, ALL THYROID STIM JUGTQKZ4307/28/2025 Clinisync Result Encounter [facility] Department Unsolicited Byron Galdamez MD 07/27/2025 2:30 PM ESTOffice Visit [facility] [address] [address] Byron Galdamez MD Tachycardia (Primary Dx); Family history of high cholesterol; Screening for diabetes mellitus; Screening cholesterol level; Multinodular duputf5707/27/2025amboo flowsheet [facility] [address] [place] [address] Byron Galdamez MD 07/27/20259471Yttfcv65/09/2025Telephone [facility] [address] [address] Byron Galdamez MD from Last 3 Months Immunizations ImmunizationAdministration DatesNext DueMeningococcal Polysaccharide A,C,Y,W-135 TT Advamsgxa54/12/2023 Family History Medical HistoryRelationNameCommentsHypertensionFatherRandy NicholsRelationName StatusCommentsFatherRandy NicholsAlive Social History Tobacco UseTypesPacks/DayYears UsedDateSmoking Tobacco: NeverSmokeless Tobacco: Never Tobacco Cessation:Counseling Given: Yes Alcohol UseStandard Drinks/WeekCommentsNever0 (1 standard drink = 0.6 oz pure alcohol)PHQ-2AnswerDate RecordedPatient Health Questionnaire-2 Qvqrw25009/26/2024 CommentsNoSex and Gender InformationValueDate RecordedSex Assigned at BirthNot on fileLegal WkbQjwqzb74/15/2023 8:08 PM EDTGender IdentityNot on file Sexual OrientationNot on file Last Filed Vital Signs Vital SignReadingTime TakenCommentsBlood Iyqfzhtm241/6001 12:00 PM EST Faqye469207/27/2025 2:28 PM ESTTemperature--Respiratory Rate--Oxygen Nsfxwemexg60% 07/27/2025 2:28 PM ESTInhaled Oxygen Concentration--Vdxrwy14.2 kg (126 lb) 07/27/2025 2:28 PM PGWQgptnk712.5 cm (5' 2 )07/27/2025 2:28 PM ESTBody Mass Index23.0507/27/2025 2:28 PM EST Plan of Treatment Health MaintenanceDue DateLast DoneCommentsInfluenza Vaccine (#1)03/15/2026 Postponed from 05/17/2025 (Patient Refused)COVID-19 VaccineDiscontinued 05/15/2021, 04/24/2021neumococcal Vaccine: Pediatrics (0 to 5 Years) and At- Risk Patients (6 to 64 Years)Aged OutNo longer eligible based on patient's age to complete this topic Procedures Procedure NamePriorityDate/TimeAssociated DiagnosisCommentsMHPT LIPID PROFILE Tfolnva8107/28/2025 8:53 AM EST ALL THYROID STIM EYOHINHJjdxgwb30/12/2025 8:53 AM EST MHPT COMP METABOLIC SPNBCgfxwkf81/12/2025 8:53 AM EST MHPT CBC WITH UUJQRghcoft89/12/2025 8:53 AM EST from Last 3 Months Results * MHPT LIPID PROFILE (07/28/2025 8:53 AM EST)ComponentValueRef RangeTest Method Analysis TimePerformed AtPathologist SignatureMHPT OOGFIQEBCOP2437 - 199 mg/dL MHPTComment: Cholesterol Guidelines: <200 Desirable 200-240 ??Borderline >240 Undesirable MHPT CHOLESTEROL,HDL50>40 mg/dLMHPTComment: HDL Guidelines: <40 Undesirable 40-59 ?Borderline >59 Desirable MHPT CHOLESTEROL,NQW483 - 100 mg/dLMHPTComment: LDL Guidelines: <100 Desirable 100-129 ?? Near to/above Desirable 130-159 ?? Borderline >159 Undesirable Direct (measured) LDL and calculated LDL are not interchangeable tests. MHPT CHOL/HDL RATIO3.1<5.0MHPTMHPT GOECXBVFOXPAP02<150 mg/dLMHPTComment: Triglyceride Guidelines: <150 Desirable 150-199 ??Borderline 200-499 ??High >499 Very high Based on AHA Guidelines for fasting triglyceride, June 2012. MHPT CHOLESTEROL,XMXO061 - 30 mg/dLMHPTSpecimen (Source)Anatomical Location / LateralityCollection Method / VolumeCollection TimeReceived Time07/28/2025 8:53 AM EST07/28/2025 8:54 AM EST Narrative [facility] - 07/28/2025 4:18 PM EST Original Ordering Provider: BYRON GALDAMEZ Authorizing ProviderResult TypeResult StatusEdapril Galdamez MDCLINISYNCFinal ResultPerforming OrganizationAddressCity/State/ZIP CodePhone Number [facility] MHPT * MHPT COMP METABOLIC PROF (07/28/2025 8:53 AM EST)ComponentValueRef RangeTest MethodAnalysis TimePerformed AtPathologist SignatureMHPT NA (SODIUM)620757 - 145 mmol/LMHPTMHPT K (POTASSIUM)4.03.7 - 5.3 mmol/LMHPTMHPT UONMTLSF83900 - 107 mmol/LMHPTMHPT LT17698 - 31 mmol/LMHPTMHPT ANION GAP99 - 16 mmol/LMHPTMHPT YAMEIBL1250 - 99 mg/dLMHPTMHPT BUN (UREA N)96 - 20 mg/dLMHPTMHPT CREATININE0.8 0.50 - 0.90 mg/dLMHPTMHPT EGFR>90>60 mL/min/1.95u5JHHFWkzmhzc: ? These results are not intended for [...] that affects renal tubular secretion. MHPT BUN/CRE CGNIO835 - 20MHPTMHPT CALCIUM9.28.6 - 10.4 mg/dLMHPTMHPT PROTEIN, TOTAL6.86.6 - 8.7 g/dLMHPTMHPT ALBUMIN4.53.5 - 5.2 g/dLMHPTMHPT ALBUMIN/GLOB RATIO1.91.0 - 2.5MHPTMHPT BILIRUBIN, TOTAL0.60.00 - 1.20 mg/dLMHPTMHPT ALKALINE SLSC7011 - 104 U/LMHPTMHPT FYU8299 - 35 U/LMHPTMHPT AZE9986 - 35 U/LMHPTSpecimen (Source)Anatomical Location / LateralityCollection [...] 13.5 k/uLMHPTMHPT RBC COUNT5.093.95 - 5.11 m/uLMHPTMHPT DCMBFNJJSK32.211.9 - 15.1 g/dLMHPTMHPT KBSLFAROHI94.036.3 - 47.1 %MHPTMHPT MCV82.5(L)82.6 - 102.9 fLMHPTMHPT MCH27.925.2 - 33.5 pgMHPTMHPT MCHC33.828.4 - 34.8 g/dLMHPTMHPT RDW 12.311.8 - 14.4 %MHPTMHPT PLATELET UMHEQ605777 - 453 k/uLMHPTMHPT MPV10.38.1 - 13.5 fLMHPTMHPT NRBC AUTOMATED0.00.0 per 100 WBCMHPTMHPT NEUTROPHIL (SEG)4534 - 64 %MHPTMHPT JGGSCNZYUC24(H)25 - 45 %MHPTMHPT BIIIJOCO15 - 8 %MHPTMHPT MBJGIYAHVB51 - 4 %MHPTMHPT YOLLNJYA71 - 2 %MHPTMHPT IMMATURE EBVKRRMSWBZ85 % MHPTMHPT ABS.NEUTROPHIL (SEG)2.101.80 - 8.00 k/uLMHPTMHPT ABS. LYMPH2.111.20 - 5.20 k/uLMHPTMHPT ABS. MONOCYTE0.300.10 - 1.40 k/uLMHPTMHPT ABS. EOSINOPHIL 0.110.00 - 0.44 k/uLMHPTMHPT ABS. BASOPHIL0.030.00 - 0.20 k/uLMHPTMHPT ABS.IMM.GRANULOCYTE<0.030.00 - 0.30 k/uLMHPTSpecimen (Source)Anatomical Location / LateralityCollection Method / VolumeCollection TimeReceived Time 07/28/2025 8:53 AM EST07/28/2025 8:54 AM EST Narrative [facility] - 07/28/2025 9:32 AM EST Original Ordering Provider: BYRON GALDAMEZ Authorizing ProviderResult TypeResult StatusByron Galdamez MDCLINISYNCFinal ResultPerforming OrganizationAddressCity/State/ZIP CodePhone Number [facility] MHPT * ALL THYROID STIM HORMONE (07/28/2025 8:53 AM EST)ComponentValueRef RangeTest MethodAnalysis TimePerformed AtPathologist SignatureMHPT THYROID STIM. HORM. 1.050.27 - 4.20 uIU/mLMHPTSpecimen (Source)Anatomical Location / Laterality Collection Method / VolumeCollection TimeReceived Time07/28/2025 8:53 AM EST 07/28/2025 8:54 AM EST Narrative [facility] - 07/28/2025 10:10 AM EST Original Ordering Provider: BYRON GALDAMEZ Authorizing ProviderResult TypeResult Benjamín Galdamez MDCLINISYNCFinal ResultPerforming OrganizationAddressCity/State/ZIP CodePhone Number [facility] MHPT from Last 3 Months Insurance
== END 2025-08-06 07:45 | disposition home or self-care (01) ==
LOC: CARD 07:44
PROVIDERS: PCP Family Medicine; Visit Provider Family Medicine
DX: R00.0 Tachycardia, unspecified (principal); R00.2 Palpitations
CPT/HCPCS: 93242